=== PATIENT | male | born 1980 | race Caucasian/White ===

== ENCOUNTER 2022-05-22 22:38 | Emergency (ER) | payer SELFPAY ==
[~2022-05-22 22:38] MED LIST: AUGMENTIN 875-1 EACH PO; BACTRIM DS TAB1 EACH PO; BENTYL 20MG TAB20 MG PO; KEFLEX500 MG PO; NORCO 5-325 TA1 EACH PO; ZOFRAN ODT 4 MG4 MG SL
== END 2022-05-23 00:53 | disposition left against medical advice (07) ==
LOC: ER1 22:38
DX: Z53.21 Procedure and treatment not carried out due to patient leaving prior to being seen by health care provider (principal)

== ENCOUNTER 2022-07-31 17:16 | Emergency (ER) | payer OTHER ==
[2022-07-31 18:55] LABS: HEMOGLOBIN 14.7 gm/dl (14.0-17.5); RED BLOOD COUNT 4.9 M/UL (4.20-5.50); WHITE BLOOD COUNT 12.6 K/UL (4.5-11.0)
[2022-07-31 19:08] LABS: BUN/CREATININE RATIO 18 (0-10)
[2022-07-31] MEDS ORDERED: AMOX TR-K CLV1 EAC4 PO (21:19)
[2022-07-31] MEDS ORDERED: HYDROCODON-ACE1 EAC4 PO (21:20)
== END 2022-07-31 21:26 | disposition home or self-care (01) ==
LOC: ER1 17:16
PROVIDERS: Physician Assistant Medical
DX: K57.32 Diverticulitis of large intestine without perforation or abscess without bleeding (principal)
CPT/HCPCS: 80053; 81001; 83605; 85025; 87040; 93005; 96374; 96375; 99284; J1170; J2405; Q9967